=== PATIENT | female | born 1985 | race American Indian/Alaskan Native ===

== ENCOUNTER 2019-06-16 11:09 | Emergency (ER) | payer MEDICAID ==
[2019-06-16 13:07] LABS: Basophils % (Auto) 0.3 % (0.0-1.8); Eosinophils # (Auto) 0.7 K/mm3 (0.0-0.4); Eosinophils % (Auto) 6.9 % (0.0-4.3); Hematocrit 39.8 % (30.3-42.9); Hemoglobin 13.3 gm/dl (10.1-14.3); Lymphocytes # (Auto) 1.2 K/mm3 (1.2-5.4); Lymphocytes % (Auto) 12.8 % (13.4-35.0); Mean Corpuscular HGB Conc 34 % (30-34); Mean Corpuscular Volume 85 fl (79-97); Monocytes # (Auto) 0.3 K/mm3 (0.0-0.8); Monocytes % (Auto) 2.8 % (0.0-7.3); Platelet Count 399 K/mm3 (140-440); Red Blood Count 4.68 M/mm3 (3.65-5.03)
--- NOTE | 2019-06-16 13:23 | Event Note ---
{null, ED Screening Note ED Screening Note: N/V/D that began this morning abdominal cramping headache no fever no known sick contacts no recent travel states she ate seafood yesterday and believes thats what it is from PMHx asthma allergy: amoxicillin, rash LNMP: 06/06/19 This initial assessment/diagnostic orders/clinical plan/treatment(s) is/are s ubject to change based on patients health status, clinical progression and re- assessment by fellow clinical providers in the ED. Further treatment and workup at subsequent clinical providers discretion. Patient/guardian urged not to elope from the ED as their condition may be serious if not clinically assessed and managed. Initial orders include: labs, UA, urine preg }
[2019-06-16 13:32] LABS: Alanine Aminotransferase 10 units/L (7-56); Albumin 4.4 g/dL (3.9-5); BUN/Creatinine Ratio 18; Blood Urea Nitrogen 9 mg/dL (7-17); Calcium 9.2 mg/dL (8.4-10.2); Hemolysis Index 22
[2019-06-16 14:12] LABS: Bilirubin,Urine Negative (Negative); Blood,Urine Negative (Negative); Color,Urine Straw (Yellow); Protein,Urine <15 mg/dL mg/dL (Negative); Urobilinogen,Urine < 2.0 mg/dL (<2.0)
[2019-06-16 14:16] LABS: HCG Qualitative,Urine Negative (Negative)
[2019-06-16] MEDS ORDERED: FAMOTIDINE 20 MG TAB PO ONE (15:46)
--- NOTE | 2019-06-16 15:47 | Emergency Department Report ---
{null, ED N/V/D HPI - General Chief complaint: Abdominal Pain Stated complaint: STOMACH PAIN/DZZY/DIARRHEA Time Seen by Provider: 06/16/19 13:21 Source: patient Mode of arrival: Ambulatory Limitations: No Limitations - History of Present Illness Initial comments: 34-year-old female presents to the ER today complaining of nausea, vomiting, diarrhea and epigastric pain. Patient states that symptoms started around 6 AM this morning. Patient states that she has had 2 episodes of vomiting since this morning, but her nausea has been constant. She reports 5 episodes of watery stools. She states the epigastric pain has been intermittent. She states that she had lobster last night which "tasted funny". She denies any ill contacts. She denies any fever or chills. She denies any UTI symptoms. Last menstrual cycle was June 06, 2019. MD complaint: nausea, vomiting, diarrhea, abdominal pain -: Sudden - Related Data Previous Rx's Medication Instructions Recorded Last Taken Type Famotidine [Pepcid] 20 mg PO BID #20 tablet 06/16/19 Unknown Rx Ondansetron [Zofran ODT TAB] 8 mg PO Q8HR PRN #12 tab.rapdis 06/16/19 Unknown Rx Allergies Allergy/AdvReac Type Severity Reaction Status Date / Time amoxicillin Allergy Rash Verified 06/16/19 13:23 ED Review of Systems ROS: Stated complaint: STOMACH PAIN/DZZY/DIARRHEA Other details as noted in HPI Constitutional: denies: chills, fever ENT: denies: throat pain, dental pain, congestion Respiratory: denies: cough, orthopnea, shortness of breath, SOB with exertion, SOB at rest, stridor, wheezing Gastrointestinal: abdominal pain, nausea, vomiting, diarrhea. denies: hematochezia Genitourinary: denies: urgency, dysuria, frequency Musculoskeletal: denies: back pain, joint swelling, myalgia Neurological: denies: headache, weakness, numbness, paresthesias, confusion, abnormal gait ED Past Medical Hx - Past Medical History Previous Medical History?: No Hx Asthma: Yes - Surgical History Additional Surgical History: hernia - Social History Smoking Status: Never Smoker - Medications Home Medications: Home Medications Medication Instructions Recorded Confirmed Last Taken Type Famotidine [Pepcid] 20 mg PO BID #20 tablet 06/16/19 Unknown Rx Ondansetron [Zofran ODT TAB] 8 mg PO Q8HR PRN #12 tab.rapdis 06/16/19 Unknown Rx ED Physical Exam - General Limitations: No Limitations General appearance: alert, in no apparent distress - Head Head exam: Present: atraumatic, normocephalic, normal inspection - Eye Eye exam: Present: normal appearance, PERRL, EOMI Pupils: Present: normal accommodation - ENT ENT exam: Present: normal exam, normal orophraynx, mucous membranes moist - Neck Neck exam: Present: normal inspection - Respiratory Respiratory exam: Present: normal lung sounds bilaterally - Cardiovascular Cardiovascular Exam: Present: regular rate, normal rhythm, normal heart sounds - GI/Abdominal GI/Abdominal exam: Present: soft. Absent: distended, tenderness - Neurological Exam Neurological exam: Present: alert, oriented X3, CN II-XII intact, normal gait - Skin Skin exam: Present: intact ED Course Vital Signs 06/16/19 11:39 Temperature 98.1 F Pulse Rate 84 Respiratory 18 Rate Blood Pressure 130/78 O2 Sat by Pulse 98 Oximetry ED Medical Decision Making - Lab Data Result diagrams: 06/16/19 12:00 06/16/19 12:00 - Medical Decision Making Patient presents to ED c/o n/v/d and epigastric. Onset this morning. Patient reports feeling better after zofran and IV fluids. No more vomiting during stay and she has not had any diarrhea during stay. She has soft tender abdomen. She is not toxic or ill appearing. She is alert and neurologically intact. Her VS are stable. Labs reviewed and unremarkable. Suspect gastroenteritis at this time. No indication for further work up at this time. Discussed laps and suspected dx, treatment plan with patient. Recommend close f/u with PCP but if worse she is to return to ED. Critical care attestation.: If time is entered above; I have spent that time in minutes in the direct care of this critically ill patient, excluding procedure time. ED Disposition Clinical Impression: Gastroenteritis Disposition: DC-01 TO HOME OR SELFCARE Is pt being admited?: No Does the pt Need Aspirin: No Condition: Stable Instructions: Gastroenteritis (ED) Additional Instructions: Recommend rest, lots of fluids, recommend doing bland diet, take medications as prescribed. You can take imodium to help with diarrhea. Follow up with PCP but if worse return to ED> Prescriptions: Famotidine [Pepcid] 20 mg PO BID #20 tablet Ondansetron [Zofran ODT TAB] 8 mg PO Q8HR PRN #12 tab.rapdis PRN Reason: Vomiting Referrals: PRIMARY CARE,MD [Primary Care Provider] - 3-5 Days Forms: Work/School Release Form(ED) Time of Disposition: 17:32 }
[2019-06-16] MEDS ORDERED: ONDANSETRON 4 MG ODT TAB PO ONE (15:54)
[2019-06-16] MEDS ORDERED: ONDANSETRON 4 MG ODT TAB ONE (15:55)
[2019-06-16] MEDS ORDERED: ONDANSETRON 4 MG/2 ML INJ IV ONE (16:11)
[2019-06-16] MEDS ORDERED: SODIUM CHLORIDE 0.9% 1000 ML 1,000 ML IV ONE (16:11)
[2019-06-16 17:53] VITALS: BP 106/73
== END 2019-06-16 17:52 | disposition home or self-care (01) ==
LOC: ED 11:09
DX: K52.9 Noninfective gastroenteritis and colitis, unspecified (principal); J45.909 Unspecified asthma, uncomplicated; Z88.0 Allergy status to penicillin; Z79.899 Other long term (current) drug therapy; Z98.890 Other specified postprocedural states
CPT/HCPCS: 36415; 80053; 81001; 81025; 83690; 85025; 96361; 96374; 99283; J2405; J7030; Q0162

== ENCOUNTER 2020-12-22 10:05 | Emergency (ER) | payer MEDICAID ==
[2020-12-22 11:19] VITALS: BP 128/78
--- NOTE | 2020-12-22 12:40 | Emergency Department Report ---
- General Chief Complaint: Pain General Stated Complaint: BODYACHES HEADACHES Time Seen by Provider: 12/22/20 12:33 Source: patient Mode of arrival: Ambulatory Limitations: No Limitations - History of Present Illness Initial Comments: Patient is a 35-year-old female presents emergency room with complaints of body aches, headache, dry cough that began 3 days ago. Patient's daughter and son have the same symptoms. Patient has not been vaccinated for COVID-19. She has not been tested for COVID-19. She denies any shortness of breath, chest pain, vomiting, diarrhea, fever, abdominal pain. Past medical history of asthma. Allergy to amoxicillin. Last menstrual cycle 11/30/2020. - Related Data Previous Rx's Medication Instructions Recorded Last Taken Type Famotidine [Pepcid] 20 mg PO BID #20 tablet 06/16/19 Unknown Rx Ondansetron [Zofran ODT TAB] 8 mg PO Q8HR PRN #12 tab.rapdis 06/16/19 Unknown Rx Allergies Allergy/AdvReac Type Severity Reaction Status Date / Time amoxicillin Allergy Rash Verified 12/22/20 11:18 ED Review of Systems ROS: Stated complaint: BODYACHES HEADACHES Other details as noted in HPI Comment: All other systems reviewed and negative ED Past Medical Hx - Past Medical History Hx Asthma: Yes - Surgical History Additional Surgical History: hernia X2 - Social History Smoking Status: Never Smoker - Medications Home Medications: Home Medications Medication Instructions Recorded Confirmed Last Taken Type Famotidine [Pepcid] 20 mg PO BID #20 tablet 06/16/19 Unknown Rx Ondansetron [Zofran ODT TAB] 8 mg PO Q8HR PRN #12 tab.rapdis 06/16/19 Unknown Rx ED Physical Exam - General Limitations: No Limitations General appearance: alert, in no apparent distress - Head Head exam: Present: atraumatic, normocephalic - Eye Eye exam: Present: normal appearance - ENT ENT exam: Present: normal orophraynx, mucous membranes moist, TM's normal bilaterally, normal external ear exam - Respiratory Respiratory exam: Present: normal lung sounds bilaterally. Absent: respiratory distress, wheezes, rales, rhonchi, stridor, chest wall tenderness, accessory muscle use, decreased breath sounds, prolonged expiratory - Cardiovascular Cardiovascular Exam: Present: regular rate, normal rhythm, normal heart sounds. Absent: systolic murmur, diastolic murmur, rubs, gallop - Neurological Exam Neurological exam: Present: alert, oriented X3 - Psychiatric Psychiatric exam: Present: normal affect, normal mood - Skin Skin exam: Present: warm, dry, intact ED Course Vital Signs 12/22/20 12/22/20 11:12 12:38 Temperature 99.5 F Pulse Rate 107 H 87 Respiratory 19 Rate Blood Pressure 128/78 O2 Sat by Pulse 100 100 Oximetry ED Medical Decision Making - Medical Decision Making Patient is a 35-year-old female presents emergency room with complaints of body aches, headache, dry cough that began 3 days ago. Patient's daughter and son have the same symptoms. Patient has not been vaccinated for COVID-19. She has not been tested for COVID-19. She denies any shortness of breath, chest pain, vomiting, diarrhea, fever, abdominal pain. Past medical history of asthma. Allergy to amoxicillin. Last menstrual cycle 11/30/2020. Initial vitals with mild tachycardia which improved to normal upon repeat. pts oxygen saturation is 100% on room air. Patient is well-appearing on exam, no abnormality on physical examination as documented in chart. Breath sounds are clear bilaterally, no wheezing, no rales, no rhonchi. Symptoms likely related to URI. Given that patient is presenting with the symptoms during COVID-19 pandemic, discussed the possibility of COVID-19 with patient, discussed return precautions, discussed outpatient testing, discussed self quarantine. Advised patient Please increase your fluid intake over the next several days. May take Tylenol as needed for fever or body aches. May take [id number] cold symptom relief medication such as Mucinex or TheraFlu. Get plenty of rest. Follow-up with a primary care doctor for reexamination. Return to emergency room immediately for any new or worsening symptoms including but not limited to difficulty breathing, shortness of breath, severe chest pain, unable to tolerate by mouth intake, etc. recommend for you to get outpatient COVID-19 testing and to self quarantine for 10 days from onset of symptoms if positive. Critical care attestation.: If time is entered above; I have spent that time in minutes in the direct care of this critically ill patient, excluding procedure time. ED Disposition Clinical Impression: Upper respiratory infection Qualifiers: URI type: unspecified URI Qualified Code(s): J06.9 - Acute upper respiratory infection, unspecified Disposition: 01 HOME / SELF CARE / HOMELESS Is pt being admited?: No Does the pt Need Aspirin: No Condition: Stable Instructions: Viral Respiratory Infection Additional Instructions: Please increase your fluid intake over the next several days. May take Tylenol as needed for fever or body aches. May take [id number] cold symptom relief medication such as Mucinex or TheraFlu. Get plenty of rest. Follow-up with a primary care doctor for reexamination. Return to emergency room immediately for any new or worsening symptoms including but not limited to difficulty breathing, shortness of breath, severe chest pain, unable to tolerate by mouth intake, etc. recommend for you to get outpatient COVID-19 testing and to self quarantine for 10 days from onset of symptoms if positive. Referrals: BROOKLYN LYMAN MD [Staff Physician] - 2-3 Days [facility] [Provider Group] - 2-3 Days Time of Disposition: 12:40 Print Language: MACEDONIAN
== END 2020-12-22 13:00 | disposition home or self-care (01) ==
LOC: ED 10:05
DX: J06.9 Acute upper respiratory infection, unspecified (principal); Z88.0 Allergy status to penicillin
CPT/HCPCS: 99281